=== PATIENT | female | born 1970 | race Two or more races ===

== ENCOUNTER 2019-07-24 22:17 | Emergency (ER) | payer MEDICAID ==
[~2019-07-24] VITALS: Ht 157.5 cm; Wt 82.0 kg
[2019-07-24 22:25] VITALS: BP 138/84
== END 2019-07-24 22:51 | disposition left against medical advice (07) ==
LOC: ER 22:17
DX: R10.30 Lower abdominal pain, unspecified (principal); Z53.21 Procedure and treatment not carried out due to patient leaving prior to being seen by health care provider